=== PATIENT | male | born 1950 | race Native Hawaiian/Other Pacific Islander ===

== ENCOUNTER 2020-01-17 09:56 | Emergency (ER) | payer OTHER ==
[~2020-01-17] VITALS: Ht 172.7 cm; Wt 95.3 kg
[2020-01-17 10:11] VITALS: TEMP 98.9
[2020-01-17 10:33] LABS: PLATELET COUNT 199 K/uL (142-355)
[2020-01-17 10:54] LABS: POTASSIUM 4.2 mmol/L (3.6-5.2); SODIUM 141 mmol/L (136-145)
[2020-01-17 10:55] LABS: PARTIAL THROMBOPLASTIN TIME 24.8 SECONDS (24.5-33.6)
[2020-01-17 12:08] VITALS: BP 155/84
== END 2020-01-17 12:12 | disposition home or self-care (01) ==
LOC: ED 09:56
PROVIDERS: Hospitalist
DX: I50.9 Heart failure, unspecified (principal)
CPT/HCPCS: 80053; 82550; 83880; 84484; 85027; 85610; 85730; 93005; 96374; 96375; 99284; J1885; J1940; J2270

== ENCOUNTER 2020-11-07 08:13 | Emergency (ER) | payer OTHER ==
[~2020-11-07] VITALS: Ht 172.7 cm; Wt 95.3 kg
[2020-11-07 08:15] VITALS: TEMP 98.7
[2020-11-07 08:40] LABS: PLATELET COUNT 214 K/uL (142-355)
[2020-11-07 08:57] LABS: POTASSIUM 3.1 mmol/L (3.6-5.2)
[2020-11-07 14:22] VITALS: BP 134/78
== END 2020-11-07 14:22 | disposition home or self-care (01) ==
LOC: ED 08:13
PROVIDERS: Hospitalist
DX: K81.0 Acute cholecystitis (principal); Z11.52 Encounter for screening for COVID-19
CPT/HCPCS: 36415; 80053; 81000; 83690; 84484; 85027; 87635; 93005; 96360; 96365; 96375; 99284; J1170; J1885; J1956; J2270; J2405; J2543; U0003

== ENCOUNTER 2023-01-04 11:05 | Inpatient (IN) | payer OTHER ==
[~2023-01-04] VITALS: Ht 172.7 cm; Wt 81.9 kg
[2023-01-04] VITALS (9 sets, daily range): BP systolic 108–147; BP diastolic 51–82; TEMP 98–98.2; Ht 172.7 cm; Wt 81.9 kg
[2023-01-04 11:39] LABS: PLATELET COUNT 213 K/uL (142-355)
[2023-01-04 12:02] LABS: POTASSIUM 3.9 mmol/L (3.6-5.2)
[2023-01-04] MEDS ORDERED: OXYCODONE30 MG PO (20:13)
[2023-01-04] MEDS ORDERED: AMLODIPINE BESYLATE PO (20:13)
[2023-01-04] MEDS ORDERED: PANTOPRAZOLE 40MG TA PO (20:14)
[2023-01-04] MEDS ORDERED: METO100T37 PO (20:14)
[2023-01-04] MEDS ORDERED: QUET300T PO (20:15)
[2023-01-04] MEDS ORDERED: NEURONTIN 100M100 MG PO (20:15)
[2023-01-04] MEDS ORDERED: LIPITOR40 MG PO (20:16)
[2023-01-04] MEDS ORDERED: GLIPIZIDE PO (20:16)
[2023-01-04] MEDS ORDERED: LISI20TA11 PO (20:17)
[2023-01-05] VITALS: BP 101/42; TEMP 98.7
[2023-01-05 04:00] VITALS: BP 118/57; TEMP 98.2
[2023-01-05 04:18] LABS: PLATELET COUNT 202 K/uL (142-355)
[2023-01-05 04:23] LABS: POTASSIUM 3.4 mmol/L (3.6-5.2)
[2023-01-05 05:12] VITALS: BP 150/80
[2023-01-05 12:00] VITALS: TEMP 98.1
[2023-01-05 16:00] VITALS: TEMP 98.7
[2023-01-05 20:00] VITALS: BP 111/50; TEMP 98.3
[2023-01-06] VITALS: BP 90/45; TEMP 97.6
[2023-01-06 04:00] VITALS: BP 139/71; TEMP 98.7
[2023-01-06 05:20] LABS: PLATELET COUNT 142 K/uL (142-355)
[2023-01-06 05:43] LABS: POTASSIUM 3.4 mmol/L (3.6-5.2)
[2023-01-06 07:33] VITALS: BP 142/64; TEMP 98.5
[2023-01-06 12:00] VITALS: BP 122/61; TEMP 98.8
[2023-01-06 16:00] VITALS: BP 149/70; TEMP 98.8
[2023-01-06 20:00] VITALS: BP 138/70; TEMP 99.9
[2023-01-07] VITALS: BP 132/78; TEMP 99.5
[2023-01-07 04:00] VITALS: BP 125/83; TEMP 98.9
[2023-01-07 08:00] VITALS: BP 153/74; TEMP 98.8
[2023-01-07] MEDS ORDERED: AMLODIPINE BESYLATE PO (11:29)
[2023-01-07] MEDS ORDERED: LIPITOR40 MG PO (11:29)
[2023-01-07] MEDS ORDERED: NEURONTIN 100M100 MG PO (11:30)
[2023-01-07] MEDS ORDERED: LISI20TA11 PO (11:31)
[2023-01-07] MEDS ORDERED: METO100T37 PO (11:32)
[2023-01-07] MEDS ORDERED: PANTOPRAZOLE 40MG TA PO (11:33)
[2023-01-07] MEDS ORDERED: QUET300T PO (11:33)
[2023-01-07] MEDS ORDERED: METFORMIN HCL500 M1 PO (11:37)
[2023-01-07 12:04] VITALS: BP 133/78; TEMP 99
[2023-01-07 15:52] VITALS: BP 142/72; TEMP 98.5
[2023-01-07 20:00] VITALS: BP 142/75; TEMP 98.5
[2023-01-08] VITALS (7 sets, daily range): BP systolic 114–139; BP diastolic 61–80; TEMP 97.6–99.6
[2023-01-09 07:50] VITALS: BP 144/79; TEMP 99
[2023-01-09 12:00] VITALS: BP 155/87; TEMP 98.9
[2023-01-09 15:53] VITALS: BP 167/79; TEMP 99
[2023-01-09 19:53] VITALS: BP 135/62; TEMP 99.4
[2023-01-09 20:00] VITALS: BP 135/62; TEMP 99.4
[2023-01-10 08:29] VITALS: BP 122/71; TEMP 98.8
[2023-01-10 19:39] VITALS: BP 108/62; TEMP 99
[2023-01-11 07:56] VITALS: BP 143/79; TEMP 98.7
== END 2023-01-11 15:10 | DRG 641 ==
LOC: ED 11:05 → MED/SURG 13:25 → ED 13:25 → MED/SURG 01-11 15:10
PROVIDERS: Family Medicine; Internal Medicine; ADMIT Internal Medicine Endocrinology, Diabetes & Metabolism; ATTEND Internal Medicine Endocrinology, Diabetes & Metabolism
DX: E16.2 Hypoglycemia, unspecified (principal); R41.82 Altered mental status, unspecified; R42 Dizziness and giddiness; R53.1 Weakness; R29.6 Repeated falls; I10 Essential (primary) hypertension; I95.89 Other hypotension; G89.4 Chronic pain syndrome; E87.6 Hypokalemia; R26.81 Unsteadiness on feet; I25.10 Atherosclerotic heart disease of native coronary artery without angina pectoris; E78.49 Other hyperlipidemia; E11.9 Type 2 diabetes mellitus without complications; D72.828 Other elevated white blood cell count; R56.9 Unspecified convulsions
CPT/HCPCS: 36415; 80048; 80053; 80307; 81000; 82140; 83036; 83735; 84443; 84484; 85027; 93005; 96374; 96375; 99284; J2270; J2405; J7060

== ENCOUNTER → 2023-01-05 | Emergency (ER) | payer OTHER ==
[~2023-01-05] MED LIST: AMLODIPINE BESYLATE PO; GLIPIZIDE PO; LIPITOR40 MG PO; LISI20TA11 PO; METFORMIN HCL500 M1 PO; METO100T37 PO; NEURONTIN 100M100 MG PO; OXYCODONE30 MG PO; PANTOPRAZOLE 40MG TA PO; QUET300T PO
== END ==
LOC: ED 04:50
DX: R42 Dizziness and giddiness (principal); E11.9 Type 2 diabetes mellitus without complications; E78.00 Pure hypercholesterolemia, unspecified; I10 Essential (primary) hypertension; I25.10 Atherosclerotic heart disease of native coronary artery without angina pectoris
CPT/HCPCS: J2060; J7060